=== PATIENT | male | born 1970 | race Caucasian/White ===

== ENCOUNTER 2019-09-22 19:36 | Emergency (ER) | payer MEDICAID ==
[~2019-09-22] VITALS: Ht 165.1 cm; Wt 90.7 kg
[2019-09-22 19:36] VITALS: BP_SYST 121
--- NOTE | 2019-09-22 19:36 | NUR ---
Patient to ER bed 03 to gown for evaluation. Side rails up.
--- NOTE | 2019-09-22 19:40 | NUR ---
Pt presents to ER with mother with c/o alcohol intoxication and medical clearance. Pt A&Ox4 and presents agitated. Mother was attempting to admit pt into [facility] for alcohol withdrawal and was told pt needed medical clearance for admit. Pt states last alcohol beverage was beer and was consumed approximately 30 minutes prior to arrival. Pt states he is suicidal and has a plan. Pt states "I will drink till I don't remember and take a million aspirin." Upon assessment, pt has 1 superficial cut to left wrist. Per pt he cut himself in waiting room with a cut up coke can. Pt breath sounds bilaterally clear with no use of accessory muscles. Will continue to monitor.
--- NOTE | 2019-09-22 19:40 | NUR ---
Patient placed on suicide precautions. Patient placed in room within close proximity to nurses' station for closer observation and monitoring. All clothing removed, placed in hospital gown. Metal detector wand used to further screen patient of any potential hazardous belongings. All belongings inventoried, placed in bags and removed from room. Cabinets locked. BP and pulse oximeter cords, and manager cardiac cath leads removed.
--- NOTE | 2019-09-22 20:36 | NUR ---
ER Dr. Pineda at bedside examining patient.
[2019-09-22] MEDS ORDERED: FOLIC ACID 1 MG, THIAMINE HCL 100 MG, MAGNESIUM SULFATE 1 GM, MVI 10 ML in NACL 0.9% 1,... IV ONE (20:45)
[2019-09-22 21:12] LABS: BASOPHILS # (AUTO) 0.1 K/uL (0.0-0.2); BASOPHILS % (AUTO) 0.8 % (0.0-2.0); EOSINOPHILS # (AUTO) 0.1 K/uL (0.0-0.4); EOSINOPHILS % (AUTO) 1.4 % (0.0-4.0); HEMOGLOBIN 14.3 g/dL (14.0-18.0); LYMPHOCYTES # (AUTO) 2.8 K/uL (1.0-5.5); LYMPHOCYTES % (AUTO) 28.2 % (20.5-51.5); MEAN CORPUSCULAR HEMOGLOBIN 32 pg (27-31); MEAN CORPUSCULAR HGB CONC 34 % (32-36); MEAN CORPUSCULAR VOLUME 94 fL (79.0-98.0); MONOCYTES # (AUTO) 1.8 K/uL (0.0-1.0); MONOCYTES % (AUTO) 18.1 % (1.7-9.3); NEUTROPHILS # (AUTO) 5.1 K/uL (1.8-7.7); NEUTROPHILS % (AUTO) 51.5 % (40.0-70.0); PLATELET COUNT (AUTO) 145 K/uL (130-430); RED BLOOD CELL COUNT(AUTO) 4.47 MIL/uL (4.2-6.2); RED CELL DISTRIBUTION WIDTH 14.5 % (9.0-15.0); WHITE BLOOD COUNT (AUTO) 9.8 K/uL (4.8-10.8)
[2019-09-22 21:23] LABS: CREATININE 1.1 mg/dL (0.55-1.30)
[2019-09-22 21:28] LABS: ALBUMIN 3.6 g/dL (3.4-4.8); TOTAL BILIRUBIN 0.5 mg/dL (0.0-1.0)
--- NOTE | 2019-09-22 21:30 | NUR ---
Pt moved from ER bed 3 to ER bed 5.
[2019-09-22 21:32] LABS: INR 1.1 (0.80-1.20); PROTHROMBIN TIME 11.5 SECS (9.5-12.5)
--- NOTE | 2019-09-22 21:41 | NUR ---
Pt combative and cursing when attempting to take vitals. Pt refuses vitals to be taken. Will continue to monitor.
--- NOTE | 2019-09-22 21:45 | NUR ---
Pt medicated per MD orders. Pt tolerated well. Will continue to monitor.
[2019-09-22] MEDS ORDERED: MVI 10 ML VIAL IV ONE (21:48)
[2019-09-22] MEDS ORDERED: FOLIC ACID 5 MG/ML VIAL IV ONE (21:48)
[2019-09-22] MEDS ORDERED: MAGNESIUM SULFATE 1 GM/2 ML VIAL ONE (21:48)
[2019-09-22] MEDS ORDERED: THIAMINE HCL 100 MG/ML VIAL ONE (21:48)
--- NOTE | 2019-09-22 22:11 | NUR ---
Pt medicated with ativan per MD orders. Pt tolerated well. Will continue to monitor.
[2019-09-22] MEDS ORDERED: LORazepam 2 MG/ML VIAL IVP ONE (22:15)
[2019-09-22 22:31] LABS: BILIRUBIN,URINE NEGATIVE (NEGATIVE); BLOOD, URINE NEGATIVE (NEGATIVE); CLARITY/URINE CLEAR (CLEAR); COLOR,URINE YELLOW (YELLOW); GLUCOSE,URINE NEGATIVE (NEGATIVE); KETONES,URINE NEGATIVE (NEGATIVE); LEUKOCYTE ESTERASE ,URINE NEGATIVE (NEGATIVE); NITRITE, URINE NEGATIVE (NEGATIVE); PROTEIN URINE NEGATIVE (NEGATIVE); UROBILINOGEN,URINE 0.2 (0.2-1.0)
[2019-09-22 22:48] LABS: BARBITURATE, URINE NEGATIVE (NEG <=200); BENZODIAZEPINE, URINE POSITIVE (NEG <=150); CANNABINOID, URINE NEGATIVE (NEG <=50); COCAINE, URINE NEGATIVE (NEG <=150); METHAMPHETAMINES SCREEN,URINE NEGATIVE (NEG <=500); OPIATE, URINE NEGATIVE (NEG <=100); PHENCYCLIDINE SCREEN,URINE NEGATIVE (NEG <=25); UR TRICYCLIC ANTIDEPRESSANTS NEGATIVE (NEG <=300); URINE AMPHETAMINE NEGATIVE (NEG <=500); URINE METHADONE NEGATIVE (NEG <=200); URINE OXYCODONE SCREEN NEGATIVE (NEG <=100); URINE PROPOXYPHENE SCREEN NEGATIVE (NEG <=300)
--- NOTE | 2019-09-22 23:16 | NUR ---
Patient resting quietly with mother at bedside. No acute distress noted. Will continue to monitor.
--- NOTE | 2019-09-23 01:11 | NUR ---
Pt combative and cursing when attempting to take vitals. Pt refuses vitals to be taken. Will continue to monitor.
--- NOTE | 2019-09-23 02:30 | NUR ---
Pt sleeping in bed with no complaints at this time. Will continue to monitor.
--- NOTE | 2019-09-23 04:31 | NUR ---
Pt sleeping in bed with no complaints. Pt refusing vital signs. Will continue to monitor.
--- NOTE | 2019-09-23 06:48 | NUR ---
Assisted pt to restroom. Pt walks to bathroom with steady gait. Will continue to monitor.
--- NOTE | 2019-09-23 07:10 | NUR ---
report given to CHOLO Rodrigues to endorse all care.
--- NOTE | 2019-09-23 08:12 | NUR ---
FULL HEAD TO TOE ASSESSMENT; PATIENT SHOWING NO REMARKABLE S/S; STATES HE'S FEELING A 'BIT SHAKEY'; ERMD ADVISED; VISIT AND EVALUATION FROM PSYCHIATRY; (DR MUHAMMAD); NO 5150 HOLD INITIATED; CASE MANAGEMENT/CAN PILER ORDERED FOR EVALUATION AND DISPOSITION
--- NOTE | 2019-09-23 08:41 | NUR ---
REGULAR DIET BREAKFAST
--- NOTE | 2019-09-23 09:10 | NUR ---
REASSESSMENT; PATIENT REMAINS SEDATE AND UNCHANGED; DISPOSITION PENDING
--- NOTE | 2019-09-23 10:33 | NUR ---
Pretzel Twisting Machine Operator Note Received a call from ED that patient wished to see a Car Framer. Saw patient at bedside. Patient stated he did not wish to talk to me and that he was just waiting to discharge. He was talking on the phone and did not wish to discuss his plans for transportation and custodial. He stated he was waiting for housing to go through and did not want any information or resources. Patient has been given a meal and has weather appropriate clothing. He has a working cellular phone.
[2019-09-23 10:38] VITALS: BP_SYST 126
--- NOTE | 2019-09-23 10:39 | NUR ---
PATIENT ELOPED DURING SUPERVISORY LIFEGUARD EVALUATION; IV OUT AND DRESSED; PATIENT UNCHANGED
== END 2019-09-23 10:38 | disposition left against medical advice (07) ==
LOC: SED 19:36
DX: S50.812A Abrasion of left forearm, initial encounter (principal); R45.851 Suicidal ideations; F10.10 Alcohol abuse, uncomplicated; I10 Essential (primary) hypertension; F17.210 Nicotine dependence, cigarettes, uncomplicated; Y90.8 Blood alcohol level of 240 mg/100 ml or more; Z71.6 Tobacco abuse counseling; X78.8XXA Intentional self-harm by other sharp object, initial encounter; Y93.89 Activity, other specified; Y92.89 Other specified places as the place of occurrence of the external cause; Y99.8 Other external cause status
CPT/HCPCS: 36415; 80053; 80307; 81003; 84484; 85025; 85610; 85730; 93005; 96365; 96375; 99284; G0482; J2060; J3411; J3475; J3490